=== PATIENT | female | born 1995 | race Caucasian/White ===

== ENCOUNTER → 2018-07-23 14:53 | Outpatient (CLI) | payer OTHER, SELFPAY ==
[2018-07-23 18:20] LABS: Thyroid Stim Hormone (TSH) 1.04 uIU/mL (0.358-3.74)
== END ==
PROVIDERS: Visit Provider Family Medicine
DX: R63.5 Abnormal weight gain (principal)
CPT/HCPCS: 36415; 84443

== ENCOUNTER 2018-08-09 15:30 | Outpatient (RCR) | payer OTHER, SELFPAY ==
--- NOTE | 2018-07-27 10:19 | HP.PTEVAL ---
Patient's Visit Information EDWARD LANTIGUA is a 23 year old F referred to Physical Therapy by Ann Archuleta MD with a diagnosis of headaches. Date of Evaluation: 07/27/18 Physical Therapist: Jose Maya PT, - Visit Plan Frequency: 1x/Week Duration: 3 Weeks Plan: C/S retraction, postural edu, scap stab ex's, ube, and HEP - Subjective Findings: Pt reports she has had neck pain intermittently for over 2 years. Pt reports she had a history of 2 falls when she was younger, which both resulted in her hitting her head on a hard surface. Pt reports her pain starts in the back on her head near the occipital lobe, and will radiate toward the front of her skull. Pt reports she notices the pain when she is watching [employer] on her phone. Pt also notes she gets pain in her neck when she sleeps at night. No tingling or numbness in UE's at this time. Pt reports occasional sleep difficulty secondary to pain. Pt has not had any diagnostic testing at this time. 1/10 pain at rest, 9/10 at worst - Pain neck pain Pain Intensity (Out of 10): 1 Pain Intensity Range: 9 - Objective Posture: Pt sits with forward posture of c/s and decreased L/S lordosis. ROM: Minor limitations with ext and retractions. All other ranges WNL. MMT: B UE are 5/5 throughout. Neuro: B UE sensation is WNL to light touch. B bicepital reflex= 2/3. Repeated movements: - Goals Goal 1:: Decrease neck pain x 50% to aid with sleep Goal Time Frame: 4-6 Weeks Goal 2:: Increase C/S ROM to WNL to aid with IADL's Goal Time Frame: 4-6 Weeks Goal 3:: Decrease occurance of TAN's x 50% to aid with sleep Goal Time Frame: 4-6 Weeks Goal 4:: I with HEP - Rehabilitation Potential Physical Therapy Diagnosis: Pt has limited cervical spine ROM, TAN's, and sleep difficulty secondary to c/s disc derrangement Rehabilitation Potential: Good - Anticipated Interventions Patient/Client Instruction: Educate patient on: Condition, Plan of Care For the Purpose of:: To improve self management Therapeutic Exercise to Include: Strength training, Postural training, Active ROM, Scapular Strength/Stabilization Cryotherapy (ice pack, ice massage): Yes For the Purpose of:: To decrease pain Thank you for the opportunity to evaluate your patient. For Medicare and Medicare HMO plans, please review the plan of care and approve it. It will need to be FAXED BACK to us at [phone] for Medicare purposes. For Medicare only, by signing this I certify the plan of care. Please let me know if there are questions or concerns regarding this plan of care. Physician Signature: Date:
--- NOTE | 2018-08-09 15:59 | HP.PTDCSUM ---
HP - PT D/C Summary It has been my pleasure to treat EDWARD LANTIGUA under orders from Ann Archuleta MD, for the diagnosis of headaches for a total of 3 visit(s). Discharge Date: Please see the following information for a summary of their discharge status. - Subjective Subjective: No pain this date - Pain neck pain Pain Intensity (Out of 10): 0 - Overall Improvement % Improvement: 70 - Objective Objective/Function: No pain this date. Pt is I with HEP. C/S ROM is now WNL. Pt reports the frequency and duration of TAN's is much improved. Pt has achieved all Rx gaols - Goals Goal 1:: Decrease neck pain x 50% to aid with sleep Goal Progress: Goal Met Goal 2:: Increase C/S ROM to WNL to aid with IADL's Goal Progress: Goal Met Goal 3:: Decrease occurance of TAN's x 50% to aid with sleep Goal Progress: Goal Met Goal 4:: I with HEP Goal Progress: Goal Met - Plan Plan: Discharge - D/C Information If there are questions or concerns regarding this patient's physical therapy, please feel free to call me at [phone]. Thank you for the referral of this patient. Sincerely, Jose Maya, PT, ATC
== END 2018-08-09 19:00 | disposition home or self-care (01) ==
LOC: PT 15:30
PROVIDERS: Family Provider Family Medicine; PCP Family Medicine; Referring Provider Family Medicine; Visit Provider Family Medicine
DX: R51 Headache (principal)
CPT/HCPCS: 97110; 97161; 97530